=== PATIENT | male | born 1995 | race Caucasian/White ===

== ENCOUNTER 2020-09-03 18:32 | Emergency (ER) | payer OTHER ==
[2016-06-25 02:54] VITALS: BP 139/84
[~2020-09-03] VITALS: Ht 190.5 cm; Wt 129.5 kg
[~2020-09-03 18:32] MED LIST: AMIT50TA PO; CEPH500T PO; FLUT1DIS3 IH; HYDR10TA2 PO; MORP15TA PO; OXYC-314 PO; POLY17PO29 PO; [UNRECOGNIZED DRUG - CODE] PO
[2020-09-03] MEDS ORDERED: HYDROcodone/APAP 10/325 1 TAB TABLET PO ONE (19:30)
[2020-09-03] MEDS ORDERED: NAPR-514 PO (20:57)
--- NOTE | 2020-09-03 20:57 | PHYS DOC ---
Past Medical History Past Medical History: No Pertinent History Additional Past Medical Histor: adhd Past Surgical History: No Surgical History Smoking Status: Never Smoker Alcohol Use: None Drug Use: None General Adult EDM: Chief Complaint: FOOT INJURY PAIN HPI: HPI: History obtained from patient. Patient is a 25-year-old male who presents with chief complaint of left ankle pain status post injury. He states he was walking down steps at home. He states he fell to the ground. He states a cement bird feeder subsequently fell on top of his left ankle. He states he landed on medial aspect of his ankle. He states that he had to remove the cement object with his hands. He states he has been able to ambulate but makes the pain worse. States pain is worse just below the medial malleolus. Does note mild swelling. Denies ecchymosis. Has not taken any medication prior to arrival. Denies hitting his head or syncope. Denies any pain. No other complaints. Review of Systems: Review of Systems: Constitutional: Denies fever or chills. [] Eyes: Denies change in visual acuity. [] HENT: Denies nasal congestion or sore throat. [] Respiratory: Denies cough or shortness of breath. [] Cardiovascular: Denies chest pain or edema. [] GI: Denies abdominal pain, nausea, vomiting, bloody stools or diarrhea. [] : Denies dysuria. [] Musculoskeletal: Positive for left ankle pain Integument: Denies rash. [] Neurologic: Denies headache, focal weakness or sensory changes. [] Endocrine: Denies polyuria or polydipsia. [] Lymphatic: Denies swollen glands. [] Psychiatric: Denies depression or anxiety. [] Heart Score: Risk Factors: Risk Factors: DM, Current or recent (<one month) smoker, HTN, HLP, family history of CAD, obesity. Risk Scores: Score 0 - 3: 2.5% MACE over next 6 weeks - Discharge Home Score 4 - 6: 20.3% MACE over next 6 weeks - Admit for Clinical Observation Score 7 - 10: 72.7% MACE over next 6 weeks - Early Invasive Strategies Current Medications: Current Medications Medications (Trade) Dose Ordered Sig/Amberly Start Time Stop Time Status Last Admin Dose Admin Acetaminophen/ Hydrocodone Bitart (Lortab 10/325) 1 tab 1X ONCE 09/03/20 19:30 09/03/20 19:31 DC 09/03/20 20:32 1 TAB Allergies: Allergies: Allergies Coded Allergies Type Severity Reaction Last Updated Verified No Known Drug Allergies 03/17/14 No Physical Exam: PE: Constitutional: Well developed, well nourished, no acute distress, non-toxic appearance. [] HENT: Normocephalic, atraumatic, bilateral external ears normal, oropharynx moist, no oral exudates, nose normal. [] Eyes: PERRLA, EOMI, conjunctiva normal, no discharge. [] Neck: Normal range of motion, no tenderness, supple, no stridor. [] Cardiovascular:Heart rate regular rhythm, no murmur [] Lungs & Thorax: Bilateral breath sounds clear to auscultation [] Abdomen: soft, no tenderness, no masses, no pulsatile masses. [] Skin: Warm, dry, no erythema, no rash. [] Back: No tenderness, no CVA tenderness. [] Extremities: L KNEE/ANKLE/FOOT: Focal tenderness to palpation inferior to the left medial malleolus. Tissue compartments are soft. Distal pulses are 2+. Knee extension is intact. Plantar flexion is intact. Proximal fibula is not tender to palpation. Medial malleolus is not tender to palpation. Lateral malleolus is not tender to palpation. 5th metatarsal head is not tender to palpation. There is no obvious deformity. Passive ROM is reduced due to pain. Active ROM is reduced due to pain. Neurologic: Alert and oriented X 3, normal motor function, normal sensory function, no focal deficits noted. [] Psychologic: Affect normal, judgement normal, mood normal. [] Current Patient Data: Vital Signs: Vital Signs Date Time Temp Pulse Resp B/P (MAP) Pulse Ox O2 Delivery O2 Flow Rate FiO2 09/03/20 20:32 Room Air 09/03/20 19:10 98.9 92 13 185/107 (133) 100 98.9 EKG: EKG: [] Radiology/Procedures: Radiology/Procedures: [] Course & Med Decision Making: Course & Med Decision Making Pertinent Labs and Imaging studies reviewed. (See chart for details) [] Patient is a pleasant 25-year-old male who presents with chief complaint of left ankle pain status post fall. Nausea vital signs unremarkable. Exam noted above. Plain film imaging of my interpretation does not reveal any obvious fracture. He was placed in an Elver wrap. Aircast given. Crutches also given for support. Return precautions discussed and understood. Encouraged to use anti-inflammatory medication at home for relief. RICE precautions given. Directed to follow-up with his primary care physician in the next 2 to 3 days. Stable for discharge. Rachael Disclaimer: Rachael Disclaimer: This electronic medical record was generated, in whole or in part, using a voice recognition dictation system. Departure Departure Impression: Primary Impression: Left ankle injury Qualified Codes: S99.912A - Unspecified injury of left ankle, initial encounter Disposition: 01 DC HOME SELF CARE/HOMELESS Condition: STABLE Referrals: VANESSA MANZANO MD (PCP) Patient Instructions: Ankle Pain Scripts Naproxen (NAPROXEN) 500 Mg Tablet 1 TAB PO BID for pain for 10 Days, #20 TAB 0 Refills Prov: ALONDRA BEAVER DO 09/03/20 ALONDRA BEAVER DO Sep 03, 2020 20:57
--- NOTE | 2020-09-03 21:08 | RAD ---
Exam: Left foot 3 views. Left ankle 3 views INDICATION: Medial left foot injury TECHNIQUE: Frontal, lateral and oblique views the left foot and left ankle Comparisons: None FINDINGS: Foot: Bone mineralization is normal. No acute or healed fractures. Soft tissues are unremarkable. Joint spaces are well-maintained. Ankle: Bone mineralization is normal. No acute or healed fractures. Soft tissues are unremarkable. Joint spaces are well-maintained. IMPRESSION: 1. No acute osseous abnormality of the left foot. 2. No acute osseous abnormality of the left ankle. Electronically signed by: Tano Merrill MD (09/03/2020 9:05 PM) JACKIE
== END 2020-09-03 21:07 | disposition home or self-care (01) ==
LOC: ER 18:32
DX: S99.912A Unspecified injury of left ankle, initial encounter (principal); W10.8XXA Fall (on) (from) other stairs and steps, initial encounter; Y93.01 Activity, walking, marching and hiking; Y92.89 Other specified places as the place of occurrence of the external cause; Y99.8 Other external cause status
CPT/HCPCS: 73610; 73630; 99284; L4350

== ENCOUNTER 2021-10-19 21:04 | Emergency (ER) | payer OTHER ==
[~2021-10-19] VITALS: Ht 188 cm; Wt 136.4 kg
[~2021-10-19 21:04] MED LIST changes: +NAPR-514 PO
[2021-10-19 21:40] VITALS: BP 152/102
--- NOTE | 2021-10-19 22:34 | PHYS DOC ---
Past Medical History Past Medical History: No Pertinent History Additional Past Medical Histor: adhd Past Surgical History: No Surgical History Smoking Status: Current Some Day Smoker Alcohol Use: None Drug Use: None General Adult EDM: Chief Complaint: EYE PROBLEMS HPI: HPI: Patient is a 26 year old male presents with the chief complaint of left wrist pain- states he fell 8 months ago and continues to have left wrist pain. Pain with ROM- no deformities noted. Left upper extremity is NVI. Patient also complains for blurry vision left eye x 3 days-- denies any injuries, eye drainage, no associated pain. Patient does not wear corrective eye wear and last eye exam 2012. Eye exam EOMI and PERRLA. Visual acuity left eye 20/20, right eye 20/25 and bilateral 20/15. Review of Systems: Review of Systems: Constitutional: Denies fever or chills. [] Eyes: positive blurry vision. HENT: Denies nasal congestion or sore throat. [] Respiratory: Denies cough or shortness of breath. [] Cardiovascular: Denies chest pain or edema. [] GI: Denies abdominal pain, nausea, vomiting, bloody stools or diarrhea. [] : Denies dysuria. [] Musculoskeletal: Denies back pain positive left wrist pain Integument: Denies rash. [] Neurologic: Denies headache, focal weakness or sensory changes. [] Endocrine: Denies polyuria or polydipsia. [] Lymphatic: Denies swollen glands. [] Psychiatric: Denies depression or anxiety. [] Heart Score: C/O Chest Pain: N/A Risk Factors: Risk Factors: DM, Current or recent (<one month) smoker, HTN, HLP, family history of CAD, obesity. Risk Scores: Score 0 - 3: 2.5% MACE over next 6 weeks - Discharge Home Score 4 - 6: 20.3% MACE over next 6 weeks - Admit for Clinical Observation Score 7 - 10: 72.7% MACE over next 6 weeks - Early Invasive Strategies Allergies: Allergies: Allergies Coded Allergies Type Severity Reaction Last Updated Verified No Known Drug Allergies 03/17/14 No Physical Exam: PE: Constitutional: Well developed, well nourished, no acute distress, non-toxic appearance. [] HENT: Normocephalic, atraumatic, bilateral external ears normal, oropharynx moist, no oral exudates, nose normal. [] Eyes: PERRLA, EOMI, conjunctiva normal, no discharge. [] Neck: Normal range of motion, no tenderness, supple, no stridor. [] Cardiovascular:Heart rate regular rhythm, no murmur [] Lungs & Thorax: Bilateral breath sounds clear to auscultation [] Abdomen: Bowel sounds normal, soft, no tenderness, no masses, no pulsatile masses. [] Skin: Warm, dry, no erythema, no rash. [] Back: No tenderness, no CVA tenderness. [] Extremities: No tenderness, no cyanosis, no clubbing, ROM intact, no edema. [] Neurologic: Alert and oriented X 3, normal motor function, normal sensory function, no focal deficits noted. [] Psychologic: Affect normal, judgement normal, mood normal. [] Current Patient Data: Vital Signs: Vital Signs Date Time Temp Pulse Resp B/P (MAP) Pulse Ox O2 Delivery O2 Flow Rate FiO2 10/19/21 21:40 98.2 80 20 152/102 (119) 98 Room Air 98.2 EKG: EKG: [] Radiology/Procedures: Radiology/Procedures: [] Course & Med Decision Making: Course & Med Decision Making Pertinent Labs and Imaging studies reviewed. (See chart for details) [] Dragon Disclaimer: Dragon Disclaimer: This electronic medical record was generated, in whole or in part, using a voice recognition dictation system. Departure Departure Impression: Primary Impression: Wrist pain Additional Impression: Blurry vision, left eye Disposition: HOME / SELF CARE / HOMELESS Condition: STABLE Referrals: VANESSA MANZANO MD (PCP) Patient Instructions: Eye - Blurred Vision, Wrist Pain Additional Instructions: Dr Messi Mckeon - Ophthalmology [phone] JAROD CURRIE DO Oct 19, 2021 22:34
[2021-10-19] MEDS ORDERED: TRAM-48 PO (23:01)
== END 2021-10-19 23:02 | disposition home or self-care (01) ==
LOC: ER 21:04
DX: M25.532 Pain in left wrist (principal); H53.8 Other visual disturbances; F17.200 Nicotine dependence, unspecified, uncomplicated; F90.9 Attention-deficit hyperactivity disorder, unspecified type
CPT/HCPCS: 29125; 99283

== ENCOUNTER → 2021-10-25 | Outpatient (CLI) | payer OTHER ==
[2021-10-19 21:40] VITALS: BP 152/102
[~2021-10-25] MED LIST changes: +TRAM-48 PO
--- NOTE | 2021-10-26 15:57 | KCIC ---
4 views left wrist 10/25/2021 2:45 PM Indication: LEFT WRIST PAIN / Spl. Instructions: Left wrist pain for one year after a FOOSH injury o ne yr ago Comparison: None Findings: There is no acute fracture or dislocation. Articular surfaces are uninterupted and smooth. Soft tissues are unremarkable. Impression: No evidence of acute osseous abnormality. Electronically signed by: Augusto Sommer MD (10/26/2021 3:54 PM) [id number]
== END ==
LOC: KCIC 14:38
PROVIDERS: ATTEND Family Medicine
DX: M25.532 Pain in left wrist (principal)
CPT/HCPCS: 73110